=== PATIENT | male | born 1985 | race Caucasian/White ===

== ENCOUNTER 2018-03-13 13:22 | Emergency (ER) | payer OTHER ==
[2018-03-13] MEDS ORDERED: Sodium Chloride 0.9% 1,000 ML IV ONE (14:29)
--- NOTE | 2018-03-13 14:41 | C.PDOC ---
History Of Present Illness 61 year old male with a history of renal colic presents to the ED for evaluation of right upper quadrant waxing and waning pain that radiates to the right groin. Patient states the symptoms feels similar to renal colic symptoms. Denies fever, nausea, vomiting, penile discharge, and any other associated symptoms. Time Seen by Provider: 03/13/18 14:25 Chief Complaint (Nursing): Abdominal Pain History Per: Patient History/Exam Limitations: no limitations Onset/Duration Of Symptoms: Days Current Symptoms Are (Timing): Still Present Past Medical History Reviewed: Historical Data, Nursing Documentation, Vital Signs Vital Signs: Last Vital Signs Temp 99.1 F 03/13/18 13:49 Pulse 90 03/13/18 13:49 Resp 18 03/13/18 13:49 BP 143/90 03/13/18 13:49 Pulse Ox 100 03/13/18 13:49 Family History: States: Unknown Family Hx - Social History Hx Tobacco Use: No Hx Alcohol Use: No Hx Substance Use: No Review Of Systems Except As Marked, All Systems Reviewed And Found Negative. Constitutional: Negative for: Fever Gastrointestinal: Positive for: Abdominal Pain (right upper quadrant.). Negative for: Nausea, Vomiting Genitourinary: Positive for: Other (right groin pain.). Negative for: Penile Pain Physical Exam - Physical Exam Appears: Well, Non-toxic, No Acute Distress, Other (obese.) Skin: Normal Color, Warm, Dry Head: Atraumatic, Normacephalic Eye(s): bilateral: Normal Inspection Gastrointestinal/Abdominal: Tenderness (to the right upper quadrant area.) Neurological/Psych: Oriented x3, Normal Speech ED Course And Treatment - Laboratory Results Result Diagrams: 03/13/18 14:46 03/13/18 14:46 O2 Sat by Pulse Oximetry: 100 (RA) Pulse Ox Interpretation: Normal - CT Scan/US CT ABD/Pelvis Other Rad Studies (CT/US): Read By Radiologist CT/US Interpretation: FINDINGS: There is limited evaluation of the solid organs without the administration of IV contrast. LOWER THORAX: No visible consolidation, pleural effusion, or pneumothorax. LIVER: Unremarkable unenhanced appearance. GALLBLADDER AND BILE DUCTS: Cholelithiasis. PANCREAS: Unremarkable unenhanced appearance. SPLEEN: Unremarkable unenhanced appearance. ADRENALS: Unremarkable unenhanced appearance. KIDNEYS AND URETERS: No hydronephrosis or obstructing renal calculus. Bilateral right greater than left renal cysts. Nonobstructing 4 mm lower pole calculus. BLADDER: Decompressed urinary bladder precludes adequate evaluation. REPRODUCTIVE: The prostate gland measures approximately 3.9 x 4.4 cm. APPENDIX: The appendix appears within normal limits of caliber. No secondary signs of acute appendicitis. BOWEL: The stomach is nondistended. Lack of oral contrast limits evaluation for bowel pathology. The bowel loops appear within normal limits of caliber without evidence of intestinal obstruction. Marked colonic wall thickening of the transverse and distal right colon consistent with colitis (i.e. Infectious, inflammatory, ischemic). Diverticulosis. PERITONE UM: No significant free fluid. No definite free air. LYMPH NODES: No bulky lymphadenopathy identified. VASCULATURE: No atherosclerotic calcification present. No aortic aneurysm. BONES: No acute osseous abnormality is detected. OTHER FINDINGS: None. IMPRESSION: Marked colonic wall thickening of the transverse and distal right colon consistent with colitis (i.e. Infectious, inflammatory, ischemic). Diverticulosis. Cholelithiasis. The. Additional findings as above. Medical Decision Making Medical Decision Making: Plan: -CT ABD/Pelvis Toradol Blood sent. Urinalysis. Progress/Update: Consider inflammatory bowel disease Patient referred to the clinic to consider colonoscopy. Patient stable for discharge home. colitis- inflammacion' del colon no hay evidencia de casandra del rinon Dieta blanda por 4 maza nada picante Ibuprofeno/Advil/Motrin 600 mg cada 6 horas sue necessario Sigue en [facility] sue necessario. Disposition Doctor Will See Patient In The: Office Counseled Patient/Family Regarding: Studies Performed, Diagnosis - Disposition Referrals: [facility] [Outside] [facility] [Outside] [facility] [Outside] [place] [facility] [Outside] Disposition: HOME/ ROUTINE Disposition Time: 16:01 Condition: GOOD Additional Instructions: sigue ibuprofeno 400-600 mg cada 6 horas sue necessario Dieta blanda nada picante Sigue en la [facility] sue necessario Instructions: Diarrhea in Adolescents and Adults, Inflammatory Bowel Disease (DC) Forms: [facility] ([place]), Work Excuse Print Language: BELARUSIAN - Clinical Impression Clinical Impression: Abdominal colic, Colitis - Scribe Statement The provider has reviewed the documentation as recorded by the Scribe (Ene Paul) Provider Attestation: All medical record entries made by the Scribe were at my direction and personally dictated by me. I have reviewed the chart and agree that the record accurately reflects my personal performance of the history, physical exam, medical decision making, and the department course for this patient. I have also personally directed, reviewed, and agree with the discharge instructions and disposition.
[2018-03-13 14:51] LABS: BASO % 0.4 % (0.0-2.0); EOS # 0.7 K/uL (0.0-0.7); EOS % 9.5 % (0.0-4.0); HEMOGLOBIN 15.9 g/dL (12.0-18.0); LYMPH # 2.6 K/uL (1.0-4.3); LYMPH % 33.6 % (20.0-40.0); MEAN CELL VOLUME 89.6 fL (80.0-94.0); MEAN CORPUSCULAR HEMOGLOBIN 30.3 pg (27.0-31.0); MEAN CORPUSCULAR HGB CONC 33.9 g/dL (33.0-37.0); MONO # 0.7 K/uL (0.0-0.8); MONO % 8.8 % (0.0-10.0); NEUT # 3.7 K/uL (1.8-7.0); NEUT % 47.7 % (50.0-75.0); NRBC % 0.1 % (0.0-2.0); RBC 5.24 Mil/uL (4.40-5.90); RED CELL DISTRIBUTION WIDTH 12.9 % (11.5-14.5); WHITE BLOOD COUNT 7.8 K/uL (4.8-10.8)
--- NOTE | 2018-03-13 15:11 | CT ---
PROCEDURE: CT Abdomen and Pelvis without Oral or IV contrast. HISTORY: R renal colic COMPARISON: None available. TECHNIQUE: Contiguous axial images of the abdomen and pelvis. No oral or IV contrast administered. Coronal and Sagittal reformats generated and reviewed. Radiation dose: Total exam DLP = 1251.02 mGy-cm. This CT exam was performed using one or more of the following dose reduction techniques: Automated exposure control, adjustment of the mA and/or kV according to patient size, and/or use of iterative reconstruction technique. FINDINGS: There is limited evaluation of the solid organs without the administration of IV contrast. LOWER THORAX: No visible consolidation, pleural effusion, or pneumothorax. LIVER: Unremarkable unenhanced appearance. GALLBLADDER AND BILE DUCTS: Cholelithiasis. PANCREAS: Unremarkable unenhanced appearance. SPLEEN: Unremarkable unenhanced appearance. ADRENALS: Unremarkable unenhanced appearance. KIDNEYS AND URETERS: No hydronephrosis or obstructing renal calculus. Bilateral right greater than left renal cysts. Nonobstructing 4 mm lower pole calculus. BLADDER: Decompressed urinary bladder precludes adequate evaluation. REPRODUCTIVE: The prostate gland measures approximately 3.9 x 4.4 cm. APPENDIX: The appendix appears within normal limits of caliber. No secondary signs of acute appendicitis. BOWEL: The stomach is nondistended. Lack of oral contrast limits evaluation for bowel pathology. The bowel loops appear within normal limits of caliber without evidence of intestinal obstruction. Marked colonic wall thickening of the transverse and distal right colon consistent with colitis (i.e. Infectious, inflammatory, ischemic). Diverticulosis. PERITONEUM: No significant free fluid. No definite free air. LYMPH NODES: No bulky lymphadenopathy identified. VASCULATURE: No atherosclerotic calcification present. No aortic aneurysm. BONES: No acute osseous abnormality is detected. OTHER FINDINGS: None. IMPRESSION: Marked colonic wall thickening of the transverse and distal right colon consistent with colitis (i.e. Infectious, inflammatory, ischemic). Diverticulosis. Cholelithiasis. The Additional findings as above.
[2018-03-13 15:12] LABS: ALB/GLOB RATIO 1.3 (1.0-2.1); ALBUMIN 4.5 g/dL (3.5-5.0); ALT/SGPT 118 U/L (21-72); AST/SGOT 51 U/L (17-59); BLOOD UREA NITROGEN 16 mg/dL (9-20); CALCIUM 9.3 mg/dl (8.6-10.4); GFR NON-AFRICAN AMERICAN > 60; LIPASE 78 U/L (23-300)
[2018-03-13] MEDS ORDERED: Sodium Chloride 0.9% 1,000 ML ONE (15:28)
[2018-03-13 16:06] LABS: URINE BILIRUBIN NEGATIVE (NEGATIVE); URINE BLOOD NEGATIVE (NEGATIVE); URINE CLARITY Hazy (Clear); URINE COLOR Yellow (YELLOW); URINE GLUCOSE (UA) NORMAL (Normal); URINE LEUKOCYTE ESTERASE NEG Leu/uL (Negative); URINE PROTEIN 1+ mg/dL (NEGATIVE); URINE UROBILINOGEN NORMAL mg/dL (0.2-1.0)
[2018-03-13 16:23] VITALS: BP 135/82; PULSE 81; RESP 16; TEMP 98.9
[2018-03-13 17:20] VITALS: O2SAT 100
== END 2018-03-13 16:17 | disposition home or self-care (01) ==
LOC: C.ER 13:22
DX: K52.9 Noninfective gastroenteritis and colitis, unspecified (principal)
CPT/HCPCS: 74176; 80053; 81001; 83690; 85025; 96361; 96374; 99284; J1885; J7030